=== PATIENT | male | born 1995 | race Caucasian/White ===

== ENCOUNTER 2018-03-30 22:12 | Emergency (ER) | payer MEDICAID ==
[2018-03-30 22:32] VITALS: BP 134/71; PULSE 76; O2SAT 98
--- NOTE | 2018-03-30 23:08 | ERPHSYRPT ---
- History of Present Illness Time Seen by Provider: 03/30/18 22:30 Source: patient, family Exam Limitations: no limitations Patient Subjective Stated Complaint: Elvin intermittent scrotum pain x 2 months Triage Nursing Assessment: to er c/o pain that is intermittent to elvin testicals. pt states onset approx 2 months [employer]. pt reports no pain at this time. denies any swelling to area or lumps. pt p/w/d resp easy [id number] Physician History: 23 y/o white male presents with h/o bilat testicular pain intermittently over 2 months. pt denies pain at this time. he has a brother recently dx with testicular cancer and he wants to be sure everything is ok. pt denies injury and denies urinary sx at this time Timing/Duration: other (2 months) Activites at Onset: none Quality: aching (when it occurs) Onset Location: right testicle, left testicle (can be only one side but also both) Pain Radiation: none Severity of Pain-Max: mild Severity of Pain-Current: none Modifying Factors: Improves With: nothing Associated Symptoms: denies symptoms, No abdominal pain, No nausea, No vomiting , No dysuria Prior abdominal problems: none Allergies/Adverse Reactions: No Known Drug Allergies Allergy (Verified 03/30/18 22:31) Home Medications: Albuterol 2.5 mg/3 ml Neb [Proventil 2.5 mg/3 ml Neb] 2.5 mg TID 04/18/15 [History] Albuterol Sulfate [Proair Hfa] 8.5 gm DAILY 04/18/15 [History] Hx Tetanus, Diphtheria Vaccination/Date Given: Yes Hx Influenza Vaccination/Date Given: No Hx Pneumococcal Vaccination/Date Given: No - Past Medical History Pertinent Past Medical History: Yes Neurological History: No Pertinent History ENT History: No Pertinent History Cardiac History: No Pertinent History Respiratory History: Asthma Endocrine Medical History: No Pertinent History Musculoskeletal History: No Pertinent History GI Medical History: No Pertinent History History: No Pertinent History Psycho-Social History: No Pertinent History Male Reproductive Disorders: No Pertinent History - Past Surgical History Past Surgical History: Yes Neuro Surgical History: No Pertinent History Cardiac: No Pertinent History Respiratory: No Pertinent History Gastrointestinal: No Pertinent History Genitourinary: No Pertinent History Musculoskeletal: No Pertinent History, Orthopedic Surgery Male Surgical History: No Pertinent History Other Surgical History: left knee - Social History Smoking Status: Current every day smoker Exposure to second hand smoke: Yes Drug Use: none Patient Lives Alone: No - Review of Systems Constitutional: No Symptoms Eyes: No Symptoms Ears, Nose, & Throat: No Symptoms Respiratory: No Symptoms Cardiac: No Symptoms Abdominal/Gastrointestinal: No Symptoms, No Abdominal Pain, No Nausea, No Vomiting, No Diarrhea Genitourinary Symptoms: Testicle Pain (intermittently over 2 months), No Dysuria , No Frequency, No Hematuria Musculoskeletal: No Symptoms Skin: No Symptoms Neurological: No Symptoms Psychological: No Symptoms Endocrine: No Symptoms Hematologic/Lymphatic: No Symptoms Immunological/Allergic: No Symptoms All Other Systems: Reviewed and Negative - Nursing Vital Signs Nursing Vital Signs: Initial Vital Signs Temperature 98.1 F 03/30/18 22:27 Pulse Rate 76 03/30/18 22:27 Respiratory Rate 16 03/30/18 22:27 Blood Pressure 134/71 03/30/18 22:27 O2 Sat by Pulse Oximetry 98 03/30/18 22:27 Pain Scale Pain Intensity 0 - Physical Exam General Appearance: no apparent distress Eye Exam: PERRL/EOMI, eyes nml inspection Ears, Nose, Throat Exam: normal ENT inspection Neck Exam: normal inspection Respiratory Exam: normal breath sounds Cardiovascular Exam: regular rate/rhythm Gastrointestinal/Abdomen Exam: soft, normal bowel sounds, No tenderness, No guarding, No rebound Rectal Exam: deferred Male Genital Exam: normal genitalia, no hernia, No epididymal tenderness, No inguinal tenderness, No scrotum tenderness (R), No scrotum tenderness (L), No testicular tenderness (R), No testicular tenderness (L), No urethral discharge Back Exam: normal inspection Extremity Exam: normal inspection Neurologic Exam: alert, oriented x 3, cooperative, internet marketing strategist II-XII nml as tested, normal mood/affect, nml cerebellar function, nml station & gait, sensation nml Skin Exam: normal color Lymphatic Exam: No adenopathy SpO2 Interpretation: normal SpO2: 98 Oxygen Delivery: Room Air Ordered Tests: Active Orders 24 hr Category Date Time Status Clean Catch Urine Specimen STAT Care 03/30/18 23:01 Active UA W/RFX UR CULTURE Stat Lab 03/30/18 22:55 Completed Lab/Rad Data: Laboratory Results 03/30/18 Range/Units 22:55 Ur Collection Type VOID Urine Color YELLOW (YELLOW) Urine Appearance CLEAR (CLEAR) Urine pH 5.0 (5-6) Ur Specific [place] 1,025 (1.005-1.025) Urine Protein NEGATIVE (Negative) Urine Ketones NEGATIVE (NEGATIVE) Urine Blood NEGATIVE (0-5) Monty/ul Urine Nitrite NEGATIVE (NEGATIVE) Urine Bilirubin NEGATIVE (NEGATIVE) Urine Urobilinogen NORMAL (0-1) mg/dL Ur Leukocyte Esterase NEGATIVE (NEGATIVE) Urine Culture Reflexed NO (NO) Urine Glucose NEGATIVE (NEGATIVE) mg/dL Specimen Received 2315 - Progress Counseled pt/family regarding: lab results, diagnosis, need for follow-up - Departure Time of Disposition: 23:48 Departure Disposition: Home Clinical Impression: Testicle tenderness Condition: Stable Critical Care Time: No Referrals: DOCTOR,NO FAMILY [Primary Care Provider] - Additional Instructions: drink plenty of fluids. tylenol and ibuprofen for pain. follow up tomorrow with primary doctor/urologist for further management including outpatient testicular ultrasound if indicated
[2018-03-30 23:22] LABS: Appearance CLEAR (CLEAR); Bilirubin NEGATIVE (NEGATIVE); Blood NEGATIVE Ery/ul (0-5); Glucose NEGATIVE (NEGATIVE); Ketones NEGATIVE (NEGATIVE); Leukocyte Esterase NEGATIVE (NEGATIVE); Nitrite NEGATIVE (NEGATIVE); Protein,Urine Dip NEGATIVE (Negative); Urobilinogen NORMAL mg/dL (0-1)
== END 2018-03-30 23:50 | disposition home or self-care (01) ==
LOC: ED 22:12
DX: N50.812 Left testicular pain (principal); N50.811 Right testicular pain
CPT/HCPCS: 81002; 99283